=== PATIENT | female | born 1995 | race Caucasian/White ===

== ENCOUNTER → 2018-09-04 | Outpatient (CLI) | payer MEDICAID | LOC: SUN.DIA 09:17 | DX: O24.419 Gestational diabetes mellitus in pregnancy, unspecified control (principal); Z3A.20 20 weeks gestation of pregnancy | CPT/HCPCS: G0108 ==

== ENCOUNTER → 2018-09-11 | Outpatient (CLI) | payer MEDICAID | LOC: SUN.DIA 09:03 | DX: O24.419 Gestational diabetes mellitus in pregnancy, unspecified control (principal); Z68.23 Body mass index [BMI] 23.0-23.9, adult | CPT/HCPCS: G0108 ==

== ENCOUNTER 2018-09-15 17:21 | Outpatient (CLI) | payer MEDICAID ==
[~2018-09-15] VITALS: Wt 73.2 kg
--- NOTE | 2018-09-15 17:35 | NUR ---
Patient to LR3 via wheelchair with spouse, changed into gown, FHR/TOCO monitor placed. Patient states "around 1700 starting feeling nauseas and having extreme rectal pressure, back pain and lower abdominal pain that is coming and going", Patient denies any vaginal bleeding, leaking of fluid, or recent intercouse. Patient is very uncomfortable, cannot sit still with pain, and sweating. SVE- Difficult to feel. Plan of care discussed. 1745: IV started in left hand, labs drawn, LR bolusing. 1750: Straight cath done and UA obtained and sent to lab.
[2018-09-15 17:56] LABS: COLLECTION METHOD CATHETER
[2018-09-15 18:00] VITALS: BP 138/79; PULSE 88; TEMP 98.8
[2018-09-15 18:11] LABS: MUCOUS Present /lpf; PH 5 (5-8); SQUAMOUS EPITHELIAL 0-2 /hpf; URINE APPEARANCE Clear; URINE BACTERIA None Seen /hpf; URINE BILIRUBIN Negative (NEGATIVE); URINE BLOOD Negative (NEGATIVE); URINE COLOR Yellow; URINE GLUCOSE Negative (NEGATIVE); URINE KETONE Negative (NEGATIVE); URINE LEUKOCYTE ESTERASE Negative (NEGATIVE); URINE NITRATE Negative (NEGATIVE); URINE PROTEIN(semi-quant) Negative (NEGATIVE); URINE RBC 0-2 /hpf; URINE WBC 0-2 /hpf
[2018-09-15 18:20] VITALS: BP 144/87; PULSE 86
[2018-09-15 18:20] LABS: TRICYCLIC ANTIDEPRESS URINE NEGATIVE
--- NOTE | 2018-09-15 18:45 | NUR ---
1800- called to come to hospital for difficult SVE. 1819- at bedside with for US and SVE. Patient very uncomfortable during SVE. SVE Closed/-2. reviews PTL precautions with patient and explains reassuring FHT to patient. Patient ambulatory to restroom. EFM and TOCO off. reviews FHT strip and gives discharge orders at this time. LR bolus complete. 1829- RN into restroom at request of patient. Patient complains of minimal spotting and "really bad diarrhea" at this time. Patient out of restroom saying "I feel 100% better now, I just have really bad diarrhea and I'm really hungry now." Discharge instructions explained at length with patient and spouse. Encouraged patient to increase water intake, take Tylenol q 6 hours as needed, and Benadryl as needed as stated by . IV out. Encouraged patient to follow up with [facility]. 1844- Patient ambulatory off unit with spouse.
[2018-09-16] MEDS ORDERED: PRENATAL (08:34)
== END 2018-09-15 18:45 | disposition home or self-care (01) ==
LOC: LDRO 17:21
PROVIDERS: Obstetrics & Gynecology
DX: O99.89 Other specified diseases and conditions complicating pregnancy, childbirth and the puerperium (principal); M54.9 Dorsalgia, unspecified; Z3A.30 30 weeks gestation of pregnancy

== ENCOUNTER 2018-09-16 08:14 | Outpatient (CLI) | payer MEDICAID ==
[~2018-09-16] VITALS: Ht 157.5 cm; Wt 75.0 kg
--- NOTE | 2018-09-16 08:17 | NUR ---
0817-G1 31.[address] MANZANO AMBULATORY TO LR 4 WITH COMPLAINTS OF BACK PAIN 5/10 AND WHAT "APPEARS TO BE RECTAL BLEEDING" BRIGHT RED IN COLOR. DENIES LOF, CONTRACTIONS, OR DECREASED FM. ASSISTED INTO GOWN AND PLACED ON EFM. VSS, REACTIVE FHR. PATEINT WAS SEEN A LABOR CHECK YESTERDAY. REPORTS AT END OR CHECK HAD AN EPISODE OF WATERY STOOL AND SOME RELIEF OF DISCOMFORT. WAS PREVIOUSLY REPORTING PAIN 02/06. NO FURTHER BM AT HOME BUT "I HAVE URGE TO GO TO BATHROOM." REPORTS FEELING"DRY MOUTH AND DRY LIPS. I HAVE BEEN DRINKING A LOT OF WATER." 0825-SVE //2, NO FLULID OR BLOOD NOTED. RECTUM OBSERVED, NO BLEEDING OR ABNOMRALITIES NOTED. ASSESSMENT COMPLETE. 0838-DR. DAY UPDATED ON PATIENT. ORDERS TO DISCHARGE HOME WITH INSTRUCTIONS TO TAKE MIRALAX DAILY UNTIL PASSING REGULAR BM AND COLACE BID. CONTINUE TO DRINK PLENTY OF WATER. REVIEWED INSTRUCTIONS WITH PATIENT. DENIES QUESTIONS. 0849 OFF EFM. 0859-AMBULATORY OFF UNIT.
[2018-09-16 08:19] VITALS: BP 133/79; PULSE 98; TEMP 98.3
[2018-09-16 08:30] VITALS: BP 133/79; PULSE 98; TEMP 98.3
[2018-09-16] MEDS ORDERED: PRENATAL (08:34)
[2018-09-16 08:49] VITALS: BP 123/76; PULSE 85
== END 2018-09-16 08:59 | disposition home or self-care (01) ==
LOC: LDRO 08:14
DX: O26.853 Spotting complicating pregnancy, third trimester (principal); Z3A.31 31 weeks gestation of pregnancy

== ENCOUNTER → 2018-09-25 | Outpatient (CLI) | payer MEDICAID ==
[~2018-09-25] MED LIST: PRENATAL
== END ==
LOC: SUN.DIA 09:22
DX: O24.419 Gestational diabetes mellitus in pregnancy, unspecified control (principal); Z3A.33 33 weeks gestation of pregnancy
CPT/HCPCS: G0108

== ENCOUNTER 2018-10-01 22:08 | Outpatient (CLI) | payer MEDICAID ==
[~2018-10-01] VITALS: Ht 154.9 cm; Wt 75.5 kg
[2018-10-01 22:30] VITALS: BP 120/66; PULSE 116; TEMP 98.2
--- NOTE | 2018-10-01 22:30 | NUR ---
2214- Patient ambulatory to LDR-5 with and RN. Patient and oriented to room. Patient into restroom to change into gown. 2219- EFM and TOCO on and tracing. Patient here with complaints of clear leaking of fluid for a couple hours. Patient denies contractions, bleeding, or spotting. Patient states she was at the pool all day today and noticed the leaking of fluid after getting home. Amniotest negative. 2234- See Physican Notification. 2239- SVE Closed/-3. 2244- EFM and TOCO off. 2299- Patient and ambulatory off unit with early labor precautions.
== END 2018-10-01 23:00 | disposition home or self-care (01) ==
LOC: LDRO 22:08
DX: Z34.93 Encounter for supervision of normal pregnancy, unspecified, third trimester (principal); Z3A.33 33 weeks gestation of pregnancy

== ENCOUNTER → 2018-10-09 | Outpatient (CLI) | payer MEDICAID | LOC: SUN.DIA 10:15 | DX: O24.419 Gestational diabetes mellitus in pregnancy, unspecified control (principal); Z3A.37 37 weeks gestation of pregnancy | CPT/HCPCS: G0108 ==

== ENCOUNTER 2018-11-13 06:55 | Inpatient (IN) | payer MEDICAID ==
[~2018-11-13] VITALS: Ht 157.5 cm; Wt 79.5 kg
[2018-11-13] VITALS (49 sets, daily range): BP systolic 110–160; BP diastolic 57–106; PULSE 74–116; TEMP 97.6–98.6
--- NOTE | 2018-11-13 07:10 | NUR ---
Patient ambulatory to LR6 with spouse, changed into gown, and FHR/TOCO monitor placed and explained. Patient denies any regular contraction/leaking of fluid/vaginal bleeding. Plan of care discussed, 0715: SVE-2-3/70/-3 and patient tolerates well. Blood sugar check-112 0730: IV placed in LH and blood drawn and IV infiltrates at this site, catheter removed. IV placed in left upper arm and LR infusing, patient tolerates well. Assessment completed and Consents gone over and signed. Questions answered and will continue to monitor.
[2018-11-13 08:06] LABS: BASO % 0.4 % (0.0-2.0); EOS # 0.1 (0.0-0.7); EOS % 0.9 % (0-4.0); GRAN # 5.4 (1.4-6.5); GRAN % 67.6 % (42.2-75.2); LYMPH # 1.9 (1.2-3.4); LYMPH % 23.8 % (20.0-51.0); MEAN CELL VOLUME 85 fl (80.0-100.0); MEAN CORPUSCULAR HGB CONC 32 g/dl (33.0-37.0); MONO # 0.5 (0.1-0.6); MONO % 6.4 % (1.7-9.3); PLATELET COUNT 328 K/mm3 (130-400); RED BLOOD COUNT 3.45 M/mm3 (4.10-5.30); REDCELL DISTRIBUTION WIDTH-CV 13.8 % (11.5-14.5)
[2018-11-13 08:07] LABS: HEMATOCRIT 29.3 % (37.0-47.0); HEMOGLOBIN 9.3 g/dl (12.5-16.0); MEAN CORPUSCULAR HEMOGLOBIN 27 pg (27.0-31.0)
--- NOTE | 2018-11-13 08:55 | NUR ---
Patient off monitors to void. 0900: Patient back in bed and Dr. Merino at bedside assessing patient/FHR strip. SVE per physician / and AROM at this time with clear fluid noted. Plan of care discussed and will continue to monitor.
--- NOTE | 2018-11-13 10:48 | NUR ---
1049-FHR tracing maternal heart due to patient sitting forward during contraction. 1127: FHR baseline 120bpm and tracing maternal heart rate due to patient sittinf forward, RN at bedside adjusting FHR monitor.
--- NOTE | 2018-11-13 13:15 | NUR ---
1315: Blood sugar-81 Patient off monitors to void. 1322:SVE-5/85/-2 FHR baseline 120bpm. Monitor intermittently tracing maternal heart rate due to patient sitting forward with contraction.
--- NOTE | 2018-11-13 13:55 | NUR ---
FHR baseline 120-125bpm and continues to intermittently trace maternal heart rate due to patient sitting forward. Patient requesting epidural and [facility] call and notified.
--- NOTE | 2018-11-13 14:15 | NUR ---
Patient sits up on edge of bed. FHR difficult to trace due to maternal position. 1426: Test dose given and patient tolerates well. 1430: Patient repositioned and plan of discussed. FHR continues to intermittently trace maternal heart rate and this RN at bedside adjusting monitor.
--- NOTE | 2018-11-13 17:20 | NUR ---
Patient sitting up with legs lowered and FHR monitor tracing maternal heart rate, this RN adjusts monitor.
--- NOTE | 2018-11-13 17:50 | NUR ---
Patient more uncomfortable with contractions. 1815: Dr. Merino at bedside and assessing patient and FHR strip. SVE per physician /+1 and orders to begin pushing with patient. Bedside report given to Jacqueline FLEMING.
--- NOTE | 2018-11-13 19:09 | NUR ---
1829 - Pt educated on pushing techniques, pt verbalized understanding. Pt positioned into footplates. Initial push at 183. 1834 - FHR down to 110 bpm after pushes, pt wedged to left side. 1843 - Pt pushing well with contractions. Dr. Merino called for delivery. 1845 - Pt continues to push well with contractions, small crown with pushes. Encouraged to not push until arrives. 1899 - Pt breathing well through contractions. 1905 - Dr. Merino gowned and gloved at perineum. Pt pushing well. Nursery at bedside. 1908 - Delivery of head, shoulder dystocia called by Dr. Merino. Head of bed lowered. Legs back in Ronda position. Delivery of left anterior shoulder after about 30 seconds. Pitocin off. Infant to mothers abdomen, care of infant assumed to Nursery nurseBritt. Cord clamped by Dr. Merino and cut by PATRICIA. 1911 - Spontaneous delivery of intact placenta. Pitocin restarted at 333 mL/hr per protocol. Fundal massage started by this RN. Second degree laceration repaired by Dr. Merino. Fundus firm at at umbilicus. 1919 - Pericare provided. New chux beneath patient. Ice pack to perineum. recovery started.
--- NOTE | 2018-11-13 21:35 | NUR ---
Pt able to lift and hold each leg off of bed for 5 seconds. IV to saline lock. Pt positioned to sitting on edge of bed. Epidural catheter removed at this time. Tip blue, smooth, and intact. Pt tolerated well. Pt able to ambulate to bathroom with standby assistance. Void 500 mL. Pericare explained and provided. New gown on. Mesh panties and pad applied. Pt ambulated to room 207 with belongings.
[2018-11-14 03:10] VITALS: BP 117/51; PULSE 89; TEMP 97.8
[2018-11-14 08:00] VITALS: BP 108/66; PULSE 82; TEMP 97.6
--- NOTE | 2018-11-14 10:42 | NUR ---
Initial visit; Patient thanked Shake Sawyer for offering congratulations for the of her daughter. Shake Sawyer thanked Mom for choosing [facility].
[2018-11-14 12:12] VITALS: BP 110/68; PULSE 94; TEMP 97.6
[2018-11-14] MEDS ORDERED: PERCOCET 325 MG1 TA2 PO (12:27)
[2018-11-14] MEDS ORDERED: IBU600 MG PO (12:27)
[2018-11-14 15:40] VITALS: BP 118/64; PULSE 91; TEMP 98.7
== END 2018-11-14 21:00 | disposition home or self-care (01) | DRG 807 ==
LOC: LDR 06:55 → OB 06:55 → LDR 09:21 → OB 21:45
PROVIDERS: ADMIT Obstetrics & Gynecology
PROC: 10E0XZZ Delivery of Products of Conception, External Approach (ICD-10-PCS; principal; 2018-11-13)
PROC: 0KQM0ZZ Repair Perineum Muscle, Open Approach (ICD-10-PCS; 2018-11-13)
PROC: 10907ZC Drainage of Amniotic Fluid, Therapeutic from Products of Conception, Via Natural or Artificial Opening (ICD-10-PCS; 2018-11-13)
PROC: 3E033VJ Introduction of Other Hormone into Peripheral Vein, Percutaneous Approach (ICD-10-PCS; 2018-11-13)
DX: O24.420 Gestational diabetes mellitus in childbirth, diet controlled (principal); Z37.0 Single live birth; O66.0 Obstructed labor due to shoulder dystocia; O70.1 Second degree perineal laceration during delivery; O90.81 Anemia of the puerperium; D64.9 Anemia, unspecified; Z3A.39 39 weeks gestation of pregnancy
CPT/HCPCS: J2590; J7120